=== PATIENT | male | born 1935 | race Caucasian/White ===

== ENCOUNTER → 2016-04-29 | Day surgery (SDC) | payer OTHER ==
[~2016-04-29] MED LIST: BUPIVACAINE 0.5% 30 ML SDV ONE; DEXAMETHASONE 4 MG/ML VIAL ONE; GLYCOPYRROLATE 0.2 MG/1 ML VIAL ONE; LIDOCAINE 1% 5 ML SDV ONE; LIDOCAINE 2% 5 ML SDV ONE; LR 1,000 ML IV ONE; MIDAZOLAM 2 MG/2 ML VIAL ONE; NEOSTIGMINE METHYLSULFATE 5 MG/5 ML SYR ONE; ONDANSETRON 4 MG/2 ML VIAL ONE; PHENYLEPHRINE HCL 100 MCG/ML SYR ONE; PROPOFOL 200 MG/20 ML VIAL ONE; ROCURONIUM 50 MG/5 ML VIAL ONE; SKIN ADHESIVE (DERMABOND) 1 EACH TP ONE; cefOXitin SODIUM 1 GM in D5W 50 ML IV ONE; fentaNYL 100 MCG/2 ML INJ ONE
--- NOTE | 2016-04-29 09:59 | GOP ---
DATE OF OPERATION: 04/29/2016 SURGEON: Kaylie Felix MD SHEET ROCK TAPER HELPER: Judith Aaron, KAYLA. ANESTHESIA: Mari Apple MD/General. PREOPERATIVE DIAGNOSIS: Mass at previous site of colon resection. POSTOPERATIVE DIAGNOSIS: Mass at previous site of colon resection. PROCEDURE PERFORMED: Laparoscopic omentectomy. FINDINGS: He had nearly all of his omentum adhered to the right paracolic gutter which was balled up. SPECIMENS: Omentum. ESTIMATED BLOOD LOSS: 5 cc. INDICATIONS: The patient is an 80-year-old man, status post resection of a colon cancer. 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 He had a CT in February which was suspicious for recurring disease in the surgical bed, and there was glucose avidity. DESCRIPTION OF PROCEDURE: The patient was brought into the operating room, placed supine on the table, and general anesthesia was administered. His abdomen was prepped and draped in the usual sterile fashion. I infiltrated all sites with 0.5% Marcaine prior to making incisions. I made an incision in the left upper quadrant away from his midline incision. I inserted the Veress needle. It passed the hanging drop test. His abdomen insufflated easily to a pressure of 15 mmHg. I inserted a 5 mm camera with the trocar at this site. I explored his abdomen. There was no evidence of carcinomatosis. There were no liver lesions. On the right lateral gutter adhered to the wall, he had a large portion of balled up omentum that was firm to palpation. Using the Harmonic Scalpel, I dissected the omentum away from this and I could identify clips. I palpated with the laparoscopic instruments, the retroperitoneum. There was 1 small firm nodule that was unable to be completely excised, but otherwise there were no suspicious masses. Shelbi was placed in the bed. The abdomen was inspected for injuries and none were noted. The ports were removed under direct vision. The abdomen was allowed to desufflate. The midline incision was closed with 0 Vicryl. Skin closed with 4-0 Monocryl. Dermabond applied. He was awakened in the operating room, extubated, transferred to PACU in stable condition. /[id number]/MODL MTDD
== END | disposition home or self-care (01) ==
LOC: F3E 06:35 → UNDOADMIN 06:35 → FSGY 06:35 → EDSTATUS 08:45
PROVIDERS: ATTEND Surgery
PROC: 0DBS4ZX (ICD-10-PCS; principal; 2016-04-29 08:45)
DX: K66.0 Peritoneal adhesions (postprocedural) (postinfection) (principal); Z85.038 Personal history of other malignant neoplasm of large intestine; Z90.49 Acquired absence of other specified parts of digestive tract; Z85.46 Personal history of malignant neoplasm of prostate
CPT/HCPCS: J0697; J1100; J2250; J2370; J2405; J2704; J2710; J3010

== ENCOUNTER 2017-06-23 08:53 | Inpatient (IN) | payer OTHER ==
--- NOTE | 2017-06-21 17:52 | GHP ---
[f rep st] PREOP HISTORY AND PHYSICAL DATE OF ADMISSION: 06/23/2017 DATE OF SURGERY: 06/23/2017. PREOP DIAGNOSIS: Colon cancer. 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 He had a diagnosti c laparoscopy performed 1 year ago, which showed a PET avid area in his previous surgical bed. Patho logy was negative. At that time of surgery, there was an area of omentum stuck to the surgical bed w hich correlated to the scant finding. At this time, his CEA level has been rising. A PET scan showe d increased activity in the retroperitoneum. He otherwise has been feeling well. He denies abdomina l pain. No fevers, chills. No chest pain or shortness of breath. PAST MEDICAL HISTORY: History of prostate cancer, history of colon cancer, shingles. PAST SURGICAL HISTORY: Right hemicolectomy 2012, omentectomy 2017, prostatectomy. ALLERGIES: No known drug allergies. FAMILY HISTORY: Significant for cancer and stroke. SOCIAL HISTORY: He denies tobacco, alcohol, or recreational drug use. He is with 6 children . REVIEW OF SYSTEMS: He complains of right flank pain associated with shingles. Otherwise, a 10-point review of systems is negative aside from HPI. PHYSICAL EXAMINATION: GENERAL: A pleasant, well-developed, well-nourished man in no acute distress. HEENT: Normocephalic, atraumatic. No hearing deficits. Pupils equal and round. No scleral icter us. Mucous membranes moist. NECK: Trachea midline. RESPIRATORY: Clear to auscultation bilaterall y. No increased work of breathing. CARDIOVASCULAR: Regular rate and rhythm and rhythm. No periphe ral edema. ABDOMEN: Soft, nondistended, nontender. No palpable masses. Previous surgical incision s well-healed. PSYCH: Mood and affect normal. NEURO: Grossly intact. IMPRESSION AND PLAN: An 82-year-old man with history of colon cancer, status post right hemicolectom y, now with a rising CEA and PET avidity of a retroperitoneal tumor. This is in the right lower quad rant. We will perform exploratory laparotomy with excision of the retroperitoneal tumor. We discuss ed risks of surgery, including but not limited to, heart attack, stroke, blood clots, or . We d iscussed risk of infection, bleeding, damage to surrounding structures, need for additional procedure s, and possible need for bowel resection. He understands the risks and would like to proceed. The p atient was additionally seen and evaluated by Dr. Kaylie Felix, who agrees with the above impression a nd plan. /[id number]/MODL
[~2017-06-23 08:53] MED LIST changes: -DEXAMETHASONE 4 MG/ML VIAL ONE; -GLYCOPYRROLATE 0.2 MG/1 ML VIAL ONE; -LIDOCAINE 1% 5 ML SDV ONE; -LIDOCAINE 2% 5 ML SDV ONE; -LR 1,000 ML IV ONE; -MIDAZOLAM 2 MG/2 ML VIAL ONE; -NEOSTIGMINE METHYLSULFATE 5 MG/5 ML SYR ONE; -ONDANSETRON 4 MG/2 ML VIAL ONE; -PHENYLEPHRINE HCL 100 MCG/ML SYR ONE; -PROPOFOL 200 MG/20 ML VIAL ONE; -ROCURONIUM 50 MG/5 ML VIAL ONE; -SKIN ADHESIVE (DERMABOND) 1 EACH TP ONE; -cefOXitin SODIUM 1 GM in D5W 50 ML IV ONE; +cefTRIAXone 2 GM in STERILE WATER INJ 20 ML IV ONE; -fentaNYL 100 MCG/2 ML INJ ONE
[2017-06-23] MEDS ORDERED: LIDOCAINE 1% 2 ML INJ ID PRN (09:05)
[2017-06-23] MEDS ORDERED: LR 1,000 ML IV ONE (09:05)
[2017-06-23 09:45] LABS: PLATELET COUNT 153 10^3/uL (150-400)
--- NOTE | 2017-06-23 10:41 | PDHPUP ---
History & Physical Update H&P update statement: This history and physical update is based on an assessment of the patient which was completed after admission or registration (within 24 hours), but prior to the surgery/procedure. H&P update: H&P reviewed & patient examined, no change in patient's condition since H&P completed
[2017-06-23] MEDS ORDERED: MIDAZOLAM 2 MG/2 ML VIAL IVP ONE (10:53)
--- NOTE | 2017-06-23 10:55 | PDANEPAE ---
ANE History of Present Illness retroper mass resection ANE Past Medical History - Cardiovascular History Hx Hypertension: No Hx Arrhythmias: No Hx Chest Pain: No Hx Coronary Artery / Peripheral Vascular Disease: No Hx CHF / Valvular Disease: No Hx Palpitations: No - Pulmonary History Hx COPD: No Hx Asthma/Reactive Airway Disease: No Hx Recent Upper Respiratory Infection: No Hx Oxygen in Use at Home: No Hx Sleep Apnea: No Sleep Apnea Screening Result - Last Documented: Negative - Neurologic History Hx Cerebrovascular Accident: No Hx Seizures: No Hx Dementia: No - Endocrine History Hx Diabetes: No Hypothyroid: No Hyperthyroid: No - Renal History Hx Renal Disorders: No Renal History Comment: slower to empty bladder - Liver History Hx Hepatic Disorders: No - Neurological & Psychiatric Hx Hx Neurological and Psychiatric Disorders: No - Cancer History Hx Cancer: Yes Cancer History Comment: COLON. BLADDER. PROSTATE - Congenital Disorder History Hx Congenital Disorders: No - GI History Hx Gastrointestinal Disorders: Yes Gastrointestinal History Comment: pelvic mass - Other Health History Other Health History: OSTEOARTHRITIS. RESIDUAL "CONTRERAS" POST SHINGLES RT SIDE CHEST AREA NEUROPATHY - Chronic Pain History Chronic Pain: Yes (RT SIDED CHEST) - Surgical History Prior Surgeries: REMVL SPOT IN BLADDER 2014 IN [place]. EXP LAP/LIVER BX. PORT PLACEMENT 09/2012. RT HEMICOLECTOMY 08/2012. PROSTATECTOMY. LT HYDROCELE. YOUSUF CATARACT. DENTAL EXTRACTION ANE Review of Systems Review of Systems: - Exercise capacity METS (RN): 4 METS ANE Patient History - Allergies Allergies/Adverse Reactions: No Known Allergies Allergy (Verified 06/21/17 16:20) - Home Medications Home Medications: Gabapentin [Neurontin 300 MG (RX)] 300 mg PO BID 08/21/12 [Last Taken 06/23/17] - NPO status NPO Since - Liquids (Date): 06/23/17 NPO Since - Liquids (Time): 06:00 NPO Since - Solids (Date): 06/22/17 NPO Since - Solids (Time): 19:00 - Anes Hx Anes Hx: no prior problems - Smoking Hx Smoking Status: Former smoker ANE Labs/Vital Signs - Labs Result Diagrams: 06/23/17 09:41 06/23/17 09:41 - Vital Signs Blood Pressure: 165/80 Heart Rate: 75 Respiratory Rate: 16 O2 Sat (%): 95 Height: 167.64 cm Weight: 61.689 kg ANE Physical Exam - Airway Mallampati Score: Class 2 - Pulmonary Pulmonary: no respiratory distress - Cardiovascular Cardiovascular: regular rate and rhythym - ASA Status ASA Status: II (edentulous) ANE Anesthesia Plan Anesthesia Plan: general endotracheal anesthesia
[2017-06-23] MEDS ORDERED: DEXAMETHASONE 4 MG/ML VIAL ONE (11:02)
[2017-06-23] MEDS ORDERED: ONDANSETRON 4 MG/2 ML VIAL ONE (11:02)
[2017-06-23] MEDS ORDERED: KETOROLAC 30 MG/1 ML SDV ONE (11:02)
[2017-06-23] MEDS ORDERED: MIDAZOLAM 2 MG/2 ML VIAL ONE (11:02)
[2017-06-23] MEDS ORDERED: ROCURONIUM 100 MG/10 ML VIAL ONE (11:02)
[2017-06-23] MEDS ORDERED: LIDOCAINE 2% 5 ML SDV ONE (11:03)
[2017-06-23] MEDS ORDERED: fentaNYL 100 MCG/2 ML INJ ONE ×3 (11:03→14:31)
[2017-06-23] MEDS ORDERED: PROPOFOL 200 MG/20 ML VIAL ONE (11:03)
[2017-06-23] MEDS ORDERED: METOPROLOL TARTRATE 5 MG/5 ML INJ ONE (11:37)
[2017-06-23] MEDS ORDERED: SUGAMMADEX SODIUM 200 MG/2 ML VIAL IVP ONE (13:16)
--- NOTE | 2017-06-23 13:17 | POSTOPPROG ---
Post Op Note Date of Operation: 06/23/17 Surgeon: Kaylie Felix Agricultural Mechanic: bubba Anesthesiologist: maria del rosario Anesthesia: GET(General Endotracheal) Pre-op Diagnosis: colon ca, retroperitoneal mass Post-op Diagnosis: same, bladder nodule Indication: 82yo M with colon ca and PET avid R retroperitoneal mass Procedure: ex lap excisional biopsy bladder nodule, R retroperitoneal nodule x 2 Findings: nodular area of R retroperitoneum Inf/Abcess present in the surg proc area at time of surgery?: No EBL: 50-100 Specimen(s): bladder nodule retroperitoneal nodule
[2017-06-23] MEDS ORDERED: ONDANSETRON 4 MG/2 ML VIAL IVP PRN ×2 (13:18→13:49)
[2017-06-23] MEDS ORDERED: HYDROCODONE/APAP 5/325 TAB PO PRN (13:18)
[2017-06-23] MEDS ORDERED: ACETAMINOPHEN 325 MG TAB PO PRN (13:18)
[2017-06-23] MEDS ORDERED: diphenhydrAMINE 25 MG CAP PO PRN (13:18)
[2017-06-23] MEDS ORDERED: ONDANSETRON DISINTEGRATING 4 MG TAB PO PRN (13:18)
[2017-06-23] MEDS ORDERED: HYDROmorphone HCL/NS 0.5 MG/ML SYR IVP PRN (13:18)
[2017-06-23] MEDS ORDERED: NS 1,000 ML IV SCH (13:30)
[2017-06-23] MEDS ORDERED: ALBUTEROL 3 ML DEYVIAL IH PRN (13:49)
[2017-06-23] MEDS ORDERED: NALOXONE HCL 0.4 MG/ML INJ IVP PRN (13:49)
[2017-06-23] MEDS ORDERED: PHENYLEPHRINE HCL 100 MCG/ML SYR IVP PRN (13:49)
--- NOTE | 2017-06-23 13:49 | POSTANESTH ---
Post Anesthetic Evaluation Cardiovascular Status: Normal, Stable Respiratory Status: Normal, Stable Level of Consciousness/Mental Status: Can Participate in Eval Pain Control: Adequate, Prn Tx Ordered Nausea/Vomiting Control: Adequate, Prn Tx Ordered Complications Possibly Related to Anesthesia: None Noted
[2017-06-23] MEDS ORDERED: HYDROmorphONE/DILAUDID 2 MG/ML INJ ONE (14:15)
[2017-06-23] MEDS: fentaNYL 100 MCG/2 ML INJ IVP PRN ×2 (14:22→14:32)
[2017-06-23] MEDS: HYDROmorphone HCL/NS 0.5 MG/ML SYR IVP PRN ×2 (14:24→14:33)
[2017-06-23] MEDS ORDERED: PROMETHAZINE HCL 25 MG/ML INJ IVP PRN (20:07)
[2017-06-23] MEDS: GABAPENTIN 300 MG CAP PO SCH (20:26)
[2017-06-24 07:52] LABS: PLATELET COUNT 145 10^3/uL (150-400)
[2017-06-24] MEDS: GABAPENTIN 300 MG CAP PO SCH ×2 (11:37→21:36)
--- NOTE | 2017-06-24 11:39 | SOAPPROG ---
SOAP Progress Note Assessment/Plan: Assessment: 82 y/o M s/p ex lap with excisional biopsies of bladder tumor and retroperitoneal nodule POD#1 S: Doing well this am. Pain well controlled. O: Alert Afebrile No increased WOB Abdomen: soft, ttp, +BS Plan: Seen with Dr. Felix. Advance diet to regular. Continue to follow. 06/24/17 11:36 Objective: Vital Signs Temp Pulse Resp BP Pulse Ox 36.6 C 95 18 164/92 H 95 06/24/17 09:38 06/24/17 09:38 06/24/17 09:38 06/24/17 09:38 06/24/17 09:38 Laboratory Results 06/24/17 07:44 06/24/17 07:44 06/23/17 06/24/17 06/25/17 05:59 05:59 05:59 Intake Total 1530 723 Output Total 700 Balance 830 723 ICD10 Worksheet Patient Problems: Problems Problem Status Onset Retroperitoneal mass Acute - ICD10 Problem Qualifiers (1) Retroperitoneal mass
--- NOTE | 2017-06-24 12:12 | PDMN ---
Medical Necessity Medical necessity: C/M review: est,.> 2 MN LOS for eval and TX of colon cancer , retroperitoneal tumor requiring 06/23/2017 surgery - exploratory laparotomy, excisional biopsy of bladder nodule, right retroperitoneal nodule x 2, - Inpatient surgery per Medicare guidelines (CPT 17865), ongoing IV fluids, pulse oximetry, advance tto regular, monitoring per 06/24/2017 progress note.
--- NOTE | 2017-06-24 16:07 | ASMTCMCOM ---
CM Note CM Note Notes: Pt is s/p expl lap with tumor resection. He has a hx of colon CA. GARCIA explained and was signed by pt's . Copy given and in chart. Family in room. CM will follow for any d/c needs. Date Signed: 06/24/2017 04:06 PM Electronically Signed By:ROBERTH Loving
[2017-06-25] MEDS: GABAPENTIN 300 MG CAP PO SCH (08:49)
--- NOTE | 2017-06-25 09:13 | GOP ---
[f rep st] OPERATIVE REPORT DATE OF OPERATION: 06/23/2017 SURGEON: Kaylie Felix MD TUNNEL HEADING INSPECTOR: Judith Aaron, KAYLA. ANESTHESIA: General. ANESTHESIOLOGIST: David West MD. PREOPERATIVE DIAGNOSIS: History of colon cancer with retroperitoneal mass. POSTOPERATIVE DIAGNOSIS: History of colon cancer with retroperitoneal mass. PROCEDURE PERFORMED: Exploratory laparotomy with excision of nodule on bladder and excision of right retroperitoneal nodule. FINDINGS: Discrete nodule on bladder, approximately 2 and firm retroperitoneal mass, ill-defined. SPECIMENS: Bladder nodule. Retroperitoneal nodule. ESTIMATED BLOOD LOSS: 100 cc. INDICATIONS: The patient is an 82-year-old man with a history of colon cancer status post hemicolect lin with anastomosis. He then presented with nodular findings on his CT and I took him for laparosco py and I excised a large piece of omentum that was extremely firm and that was retrocecal. Over the past year his CEA has risen and his PET showed avidity in the retroperitoneum. At this point, he was willing to have an open surgery. DESCRIPTION OF PROCEDURE: Patient was brought into the operating room, placed supine on the table, a nd general anesthesia was administered. His abdomen was prepped and draped in the usual sterile fash ion. I infiltrated the area with 0.5% Marcaine prior to making incisions. I made an incision in the lower midline. I deepened down through the subcutaneous tissues. I encountered the fascia. I divi ded this. I then found the peritoneum. I elevated this and entered his abdominal cavity sharply. Silvino gaming did not have many midline incisions. His bladder was very large and there was a firm nodule on thi s. I carefully dissected this free with Metzenbaum scissors and submitted this for permanent. I did not enter the bladder but I reapproximated the area with 3-0 chromic. I then moved all his bowel danielson perior and medial in order to access the retroperitoneal area. I identified the iliac artery and vei n and protected them from harm. I then found the most discrete nodule. I began to carefully circumf erentially dissect this. After I excised the largest nodule, I then palpated again in the retroperit oneum and it was very firm and nodular. I took additional tissue at this point, I was nearly on top of the iliac crest. Since the area was desmoplastic like his previous surgeries, which did not neces sarily show cancer and I was concerned about going deeper with again not being able to obtain perfect ly clear margins, I terminated the procedure. Hemostasis was achieved. I placed Shelbi in the retro peritoneum. Irrigation performed. No injuries noted. The fascia was closed with #1 PDS. Skin clos ed with celio. Sterile dressing applied. He was awakened in the operating room, extubated, transf erred to PACU in stable condition. /[id number]/MODL
--- NOTE | 2017-06-25 09:48 | SOAPPROG ---
SOAP Progress Note Assessment/Plan: Assessment: 82 y/o M s/p ex lap with excisional biopsies of bladder tumor and retroperitoneal nodule POD#1 S: Doing well this am. Pain well controlled. O: Alert Afebrile No increased WOB Abdomen: soft, ttp, +BS Plan: Seen with Dr. Felix. Advance diet to regular. Continue to follow. 06/24/17 11:36 06/25/17 09:47 Doing well. Tolerating a regular diet. Passing gas, but no BM yet. pain well controlled. +BS. Objective: Vital Signs Temp Pulse Resp BP Pulse Ox 36.4 C 87 18 158/85 H 95 06/25/17 08:43 06/25/17 08:43 06/25/17 08:43 06/25/17 08:43 06/25/17 08:43 Laboratory Results 06/24/17 07:44 06/24/17 07:44 06/24/17 06/25/17 06/26/17 05:59 05:59 05:59 Intake Total 1530 1723 Output Total 700 Balance 830 1723 ICD10 Worksheet Patient Problems: Problems Problem Status Onset Retroperitoneal mass Acute - ICD10 Problem Qualifiers (1) Retroperitoneal mass
[2017-06-25 12:54] VITALS: BP 176/84
--- NOTE | 2017-06-25 13:25 | SOAPPROG ---
SOAP Progress Note Assessment/Plan: Assessment: doing well, tolerating diet, will dc home Plan: 06/25/17 13:25 Objective: Vital Signs Temp Pulse Resp BP Pulse Ox 36.3 C 100 18 176/84 H 94 06/25/17 12:52 06/25/17 12:52 06/25/17 12:52 06/25/17 12:52 06/25/17 12:52 Laboratory Results 06/24/17 07:44 06/24/17 07:44 06/24/17 06/25/17 06/26/17 05:59 05:59 05:59 Intake Total 1530 1723 Output Total 700 Balance 830 1723 ICD10 Worksheet Patient Problems: Problems Problem Status Onset Retroperitoneal mass Acute
--- NOTE | 2017-06-25 14:03 | ASMTCMCOM ---
CM Note CM Note Notes: Chart reviewed. Medically clear for discharge to home. No needs identified, IM signed. CM available should needs arise. Plan: Home self care Date Signed: 06/25/2017 02:02 PM Electronically Signed By:Mariajose Pisano RN
== END 2017-06-25 13:45 | disposition home or self-care (01) | DRG 358 ==
LOC: OBSVTOIN 08:53 → F3E 08:53 → INTOOBSV 08:53 → F1N 09:58
PROVIDERS: ADMIT Surgery; ATTEND Surgery
PROC: 0WBH0ZX Excision of Retroperitoneum, Open Approach, Diagnostic (ICD-10-PCS; principal; 2017-06-23 10:30)
PROC: 0TBB0ZX Excision of Bladder, Open Approach, Diagnostic (ICD-10-PCS; principal; 2017-06-23 10:30)
DX: C78.6 Secondary malignant neoplasm of retroperitoneum and peritoneum (principal); D30.3 Benign neoplasm of bladder; Z85.038 Personal history of other malignant neoplasm of large intestine; Z85.46 Personal history of malignant neoplasm of prostate
CPT/HCPCS: J0696; J1100; J1170; J1885; J2250; J2370; J2405; J2550; J2704; J3010

== ENCOUNTER 2017-11-10 05:24 | Observation (INO) | payer OTHER ==
[2017-11-10] MEDS ORDERED: LR 1,000 ML IV ONE (05:59)
[2017-11-10] MEDS ORDERED: ceFAZolin 2 GM/DEXTROSE 100 ML IV ONE (05:59)
[2017-11-10] MEDS ORDERED: BUPIVACAINE 0.5% 30 ML SDV ONE (06:56)
--- NOTE | 2017-11-10 06:56 | PDANEPAE ---
ANE Past Medical History - Cardiovascular History Hx Hypertension: No Hx Arrhythmias: No Hx Chest Pain: No Hx Coronary Artery / Peripheral Vascular Disease: No Hx CHF / Valvular Disease: No Hx Palpitations: No - Pulmonary History Hx COPD: No Hx Asthma/Reactive Airway Disease: No Hx Recent Upper Respiratory Infection: No Hx Oxygen in Use at Home: No Hx Sleep Apnea: No Sleep Apnea Screening Result - Last Documented: Negative - Neurologic History Hx Cerebrovascular Accident: No Hx Seizures: No Hx Dementia: No - Endocrine History Hx Diabetes: No - Renal History Hx Renal Disorders: No Renal History Comment: slower to empty bladder - Liver History Hx Hepatic Disorders: No - Neurological & Psychiatric Hx Hx Neurological and Psychiatric Disorders: No - Cancer History Hx Cancer: Yes Cancer History Comment: FINISHED RADIATION 09/2017. COLON. BLADDER. PROSTATE - Congenital Disorder History Hx Congenital Disorders: No - GI History Hx Gastrointestinal Disorders: Yes Gastrointestinal History Comment: pelvic mass - Other Health History Other Health History: OSTEOARTHRITIS. RESIDUAL "CONTRERAS" POST SHINGLES RT SIDE CHEST AREA NEUROPATHY - Chronic Pain History Chronic Pain: No - Surgical History Prior Surgeries: EXC BLADDER/RETROPERITONEAL NODULE 06/2017. REMVL SPOT IN BLADDER 2014 IN [place]. EXP LAP/LIVER BX. PORT PLACEMENT 09/2012. RT HEMICOLECTOMY 08/2012. PROSTATECTOMY. LT HYDROCELE. YOUSUF CATARACT. DENTAL EXTRACTION ANE Review of Systems Review of Systems: - Exercise capacity METS (RN): 4 METS ANE Patient History - Allergies Allergies/Adverse Reactions: No Known Allergies Allergy (Verified 06/21/17 16:20) - Home Medications Home Medications: Gabapentin [Neurontin 300 MG (*)] 300 mg PO BID 08/21/12 [Last Taken 11/10/17 04 :00] - NPO status NPO Since - Liquids (Date): 11/10/17 NPO Since - Liquids (Time): 03:15 NPO Since - Solids (Date): 11/09/17 NPO Since - Solids (Time): 21:00 - Smoking Hx Smoking Status: Former smoker ANE Labs/Vital Signs - Vital Signs Blood Pressure: 158/86 Heart Rate: 81 Respiratory Rate: 14 O2 Sat (%): 97 Height: 163.83 cm Weight: 61.235 kg ANE Physical Exam - Airway Mallampati Score: Class 2 - ASA Status ASA Status: II ANE Anesthesia Plan Anesthesia Plan: general endotracheal anesthesia, GA w LMA
[2017-11-10] MEDS ORDERED: PROPOFOL 200 MG/20 ML VIAL ONE (07:03)
[2017-11-10] MEDS ORDERED: MIDAZOLAM 2 MG/2 ML VIAL ONE (07:03)
[2017-11-10] MEDS ORDERED: fentaNYL 100 MCG/2 ML INJ ONE ×3 (07:03→09:41)
[2017-11-10] MEDS ORDERED: METOCLOPRAMIDE 10 MG/2 ML VIAL ONE (07:08)
[2017-11-10] MEDS ORDERED: ROCURONIUM 50 MG/5 ML VIAL ONE (07:08)
[2017-11-10] MEDS ORDERED: ONDANSETRON 4 MG/2 ML VIAL ONE (07:08)
[2017-11-10] MEDS ORDERED: ONDANSETRON 4 MG/2 ML VIAL IVP PRN (07:19)
[2017-11-10] MEDS ORDERED: PHENYLEPHRINE HCL 100 MCG/ML SYR ONE (07:23)
--- NOTE | 2017-11-10 08:44 | POSTOPPROG ---
Post Op Note Date of Operation: 11/10/17 Surgeon: Kaylie Felix Train Planner: bubba Anesthesiologist: carley Anesthesia: GET(General Endotracheal) Pre-op Diagnosis: ventral hernia Post-op Diagnosis: same Indication: 82 year old with ventral hernia Procedure: ventral hernia repair with mesh Findings: hernia measures 6x10 Inf/Abcess present in the surg proc area at time of surgery?: No EBL: Minimal Drains: Brennan Hernadez Specimen(s): abdominal wall
--- NOTE | 2017-11-10 09:00 | GOP ---
DATE OF OPERATION: 11/10/2017 SURGEON: Kaylie Felix MD RN OTOLARYNGOLOGY: Judith Aaron PA-C. ANESTHESIA: Maxwell Jarvis MD, general. PREOPERATIVE DIAGNOSIS: Ventral hernia. POSTOPERATIVE DIAGNOSIS: Ventral hernia. PROCEDURE PERFORMED: Ventral hernia repair with mesh. FINDINGS: Hernia measured 6 x 10 cm. Symbotex 10 x 15 mesh. SPECIMENS: Abdominal wall. ESTIMATED BLOOD LOSS: 20 cc. INDICATIONS: Anibal Samuel is an 82-year-old man with a history of colon cancer status post multiple surgeries. He has developed a ventral hernia, midline. DESCRIPTION OF PROCEDURE: Patient was brought into the operating room, placed supine on the table an d general anesthesia was administered. His abdomen was prepped and draped in the usual sterile fashi on. I made a midline incision from above his umbilicus to below, and I deepened my dissection down c arefully through the subcutaneous tissues. I carefully divided the anterior rectus sheath. I then w as able to visualize the posterior rectus sheath. I elevated it, and entered the abdominal cavity sh arply. I was able to create a nice space superiorly, and then my dissection continued inferiorly. I did have to perform some lysis of adhesions to remove some attachments from the bowel and colon to t he midline. Once this was accomplished, I was able to fully define the fascial defect. There was a rough part of the abdominal wall which I excised and sent it for permanent. I developed the fascial plane preperitoneal and intraperitoneal. The fascial defect measured approximately 10 x 6. I select ed a piece of Symbotex, 10 x 15 mesh. I anchored this in 4 corners with 0 PDS. I then sutured it ru nning between each of the quadrants. Next, I sutured the midline defect closed with 0 PDS. Due to t he undermining of the skin, I placed a 15 round silicone drain which exited the left lower quadrant, sutured in place with 3-0 nylon. I closed the skin with 3-0 Vicryl followed by 4-0 Monocryl. 30 cc of Marcaine was injected. Dermabond applied. He was awakened in the operating room, extubated, jacques sferred to PACU in stable condition. /[id number]/MODL
[2017-11-10] MEDS ORDERED: NALOXONE HCL 0.4 MG/ML INJ IVP PRN (09:05)
[2017-11-10] MEDS ORDERED: LR 500 ML IV PRN (09:05)
--- NOTE | 2017-11-10 09:05 | POSTANESTH ---
Post Anesthetic Evaluation Cardiovascular Status: Similar to Pre-Op Cond Respiratory Status: Normal, Stable Level of Consciousness/Mental Status: Can Participate in Eval Pain Control: Adequate, Prn Tx Ordered Nausea/Vomiting Control: Adequate, Prn Tx Ordered Complications Possibly Related to Anesthesia: None Noted
[2017-11-10] MEDS: fentaNYL 100 MCG/2 ML INJ IVP PRN ×4 (09:22→09:53)
[2017-11-10] MEDS ORDERED: LABETALOL HCL 5 MG/ML 20 ML MDV ONE (09:47)
[2017-11-10] MEDS: LABETALOL HCL 5 MG/ML 20 ML MDV IVP PRN ×2 (09:47→10:47)
[2017-11-10] MEDS ORDERED: KETOROLAC 15 MG/1 ML SDV ONE (10:24)
[2017-11-10] MEDS ORDERED: KETOROLAC 15 MG/1 ML SDV IVP ONE (10:45)
[2017-11-10] MEDS: GABAPENTIN 300 MG CAP PO SCH ×2 (13:30→21:12)
[2017-11-10] MEDS: HYDROCODONE/APAP 5/325 TAB PO PRN (18:34)
[2017-11-11 05:50] LABS: PLATELET COUNT 160 10^3/uL (150-400)
[2017-11-11] MEDS: HYDROCODONE/APAP 5/325 TAB PO PRN (05:58)
[2017-11-11] MEDS: GABAPENTIN 300 MG CAP PO SCH (07:43)
[2017-11-11 11:14] VITALS: BP 138/83
--- NOTE | 2017-11-11 11:24 | SOAPPROG ---
SOAP Progress Note Assessment/Plan: Assessment: POD # 1 s/p ventral hernia repair with mesh Had higher RYLAND output yesterday but that is improving Taking about 1 [place] per shift - very stoic Ambulating but not confident Likely home tomorrow S: Stated had a difficult time last night with pain O: Lying in bed with at bedside CTAB no increased work of breathing Regular rate BS present Soft, minimally tender Full in Left lower quadrant Scant output in RYLAND drain Incision cdi Plan: 11/11/17 11:21 Objective: Vital Signs Temp Pulse Resp BP Pulse Ox 36.7 C 110 H 16 138/83 H 94 11/11/17 11:14 11/11/17 11:14 11/11/17 11:14 11/11/17 11:14 11/11/17 11:14 Laboratory Results 11/11/17 05:20 11/10/17 11/11/17 11/12/17 05:59 05:59 05:59 Intake Total 1050 Output Total 1490 317.5 Balance -440 -317.5 ICD10 Worksheet Patient Problems: Problems Problem Status Onset Retroperitoneal mass Acute
--- NOTE | 2017-11-11 13:19 | ASMTCMCOM ---
CM Note CM Note Notes: Spoke w/RN, PT cleared pt for home. He will dc home w/support of when medically stable. CM available for any changes. DC Plan: Independent Date Signed: 11/11/2017 01:19 PM Electronically Signed By:Parisa Mcclain RN
--- NOTE | 2017-11-21 17:48 | GDS ---
ADMITTING DIAGNOSIS: Ventral hernia. SECONDARY DIAGNOSES: Colon cancer, prostate cancer. REASON FOR ADMISSION: The patient is an 82-year-old man who has had multiple open laparotomies for c olon cancer. He developed an incisional hernia. He presents at this time for surgical repair. HOSPITAL COURSE: He was taken to the operating room on 11/10/[address] Kaylie Felix for ventral her marek repair with mesh. The hernia defect measured 6 x 10 cm. He had a RYLAND drain placed at the time of surgery. A specimen was sent from the time of surgery. Pathology revealed non neoplastic fibroadip ose tissue with reactive fibrosis, chronic inflammation and foreign body type giant cell reaction con sistent with ventral hernia sac. He was kept overnight for pain control, and observation. By postop erative day #1, his pain was well controlled, tolerating a regular diet, and was ready for discharge. DISCHARGE CONDITION: He will be discharged home in stable condition. DISCHARGE MEDICATIONS: He was sent home with a prescription for gabapentin and [place] and instructed to resume home medicines. Please see EMR for further detail. DISCHARGE INSTRUCTIONS AND FOLLOWUP: He will avoid heavy lifting, pushing, or pulling for 6 weeks. Walk daily. May shower. Follow up with Dr. Felix in 1-2 weeks. Call with worsening symptoms, quest ions or concerns. /[id number]/MODL
== END 2017-11-11 14:52 | disposition home or self-care (01) ==
LOC: FSGY 05:24 → F3E 07:18
PROVIDERS: ADMIT Surgery; ATTEND Surgery
PROC: 0WUF0JZ Supplement Abdominal Wall with Synthetic Substitute, Open Approach (ICD-10-PCS; principal; 2017-11-10 07:15)
DX: K43.9 Ventral hernia without obstruction or gangrene (principal)
CPT/HCPCS: 49560; 49568; 88302; 97161; C1781; G8978; G8979; J0690; J1885; J2250; J2270; J2370; J2405; J2704; J2765; J3010

== ENCOUNTER → 2017-11-28 | Outpatient (CLI) | payer OTHER | LOC: FIMAGING 06:20 | PROVIDERS: ATTEND Surgery | DX: K66.1 Hemoperitoneum (principal) ==